=== PATIENT | female | born 1965 ===

== ENCOUNTER 2018-04-11 20:13 | Emergency (ER) | payer SELFPAY ==
[2018-04-11 20:24] VITALS: BP 134/72; PULSE 70; RESP 20; TEMP 97.8; O2SAT 97
[2018-04-11 20:29] VITALS: BMI 33.2
--- NOTE | 2018-04-11 20:52 | C.PDOC ---
History Of Present Illness 52 year old female presents to the ED for an evaluation of productive cough, bodyache and sore throat. Patient reports of phlegm. Otherwise, she denies fever or sick travels. Also denies any associated fever, vomiting or diarrhea. Time Seen by Provider: 04/11/18 20:28 Chief Complaint (Nursing): Fever History Per: Patient History/Exam Limitations: no limitations Onset/Duration Of Symptoms: Days Current Symptoms Are (Timing): Still Present Associated Symptoms: Sore Throat, Sputum Past Medical History Reviewed: Historical Data, Nursing Documentation, Vital Signs Vital Signs: Last Vital Signs Temp 97.8 F 04/11/18 20:23 Pulse 70 04/11/18 20:23 Resp 20 04/11/18 20:23 BP 134/72 04/11/18 20:23 Pulse Ox 97 04/11/18 20:23 - Medical History PMH: HTN Family History: States: Unknown Family Hx - Social History Hx Alcohol Use: No Hx Substance Use: No - Immunization History Hx Tetanus Toxoid Vaccination: Yes Hx Influenza Vaccination: Yes Hx Pneumococcal Vaccination: Yes Review Of Systems Except As Marked, All Systems Reviewed And Found Negative. Constitutional: Positive for: Other (body ache). Negative for: Fever ENT: Positive for: Throat Pain. Negative for: Nose Discharge, Nose Congestion Cardiovascular: Negative for: Chest Pain Respiratory: Positive for: Cough, Sputum Gastrointestinal: Negative for: Nausea, Vomiting, Diarrhea Physical Exam - Physical Exam Appears: Well, No Acute Distress Skin: Normal Color, Warm, Dry Head: Atraumatic, Normacephalic Eye(s): bilateral: Normal Inspection, PERRL, EOMI Nose: Normal Oral Mucosa: Moist Throat: Normal, No Erythema, No Exudate Neck: Normal, Supple Chest: Symmetrical Cardiovascular: Rhythm Regular Respiratory: Normal Breath Sounds, No Decreased Breath Sounds, No Plerual Rub Extremity: Bilateral: Atraumatic, Normal Color And Temperature, Normal ROM Neurological/Psych: Oriented x3, Normal Speech ED Course And Treatment O2 Sat by Pulse Oximetry: 97 (RA) Pulse Ox Interpretation: Normal Medical Decision Making Medical Decision Making: Time: 2037 Initial Plan: Ibuprofen 600mg Azithromycin 500mg Reevaluation Upon reassessment, patient has bronchitis. Patient discharged with a prescription for Zithromax 250mg, Tessalon Perles 100mg, Naprosyn 500mg and Sudafed 60mg. Disposition Counseled Patient/Family Regarding: Diagnosis, Need For Followup, Rx Given - Disposition Referrals: Yumi Rios MD [Medical Doctor] - Disposition: HOME/ ROUTINE Disposition Time: 20:50 Condition: STABLE Additional Instructions: follow up with your doctor within 2 days call to make an appointment take medications as prescribed return to ER if symptoms worsens or progress Prescriptions: Azithromycin [Zithromax] 250 mg PO DAILY #4 tab Benzonatate [Tessalon Perles] 100 mg PO BID PRN #14 tab PRN Reason: Cough Naproxen [Naprosyn] 500 mg PO BID PRN #16 tab PRN Reason: Pain, Moderate (4-7) Pseudoephedrine HCl [Sudafed] 60 mg PO TID PRN #20 tablet PRN Reason: Cough And Congestion Instructions: Acute Bronchitis Forms: General Discharge Instructions, [facility] ([place]), Work Excuse - Clinical Impression Clinical Impression: Bronchitis - Scribe Statement The provider has reviewed the documentation as recorded by the Scribe (Carolyn Rizvi) Provider Attestation: All medical record entries made by the Scribe were at my direction and personally dictated by me. I have reviewed the chart and agree that the record accurately reflects my personal performance of the history, physical exam, medical decision making, and the department course for this patient. I have also personally directed, reviewed, and agree with the discharge instructions and disposition.
== END 2018-04-11 21:00 | disposition home or self-care (01) ==
LOC: C.ER 20:13
DX: J40 Bronchitis, not specified as acute or chronic (principal)